=== PATIENT | male | born 1970 | race Hispanic/Latino ===

== ENCOUNTER 2025-08-03 13:14 | Emergency (ER) | payer BC ==
[~2025-08-03] VITALS: Ht 160 cm; Wt 65.9 kg
[2025-08-03] MEDS ORDERED: ACETAMINOPHEN 325 MG TAB ONE ×2 (14:33→14:41)
[2025-08-03] MEDS ORDERED: TRAMADOL HCL 50 MG TAB ONE (14:34)
[2025-08-03] MEDS: TRAMADOL HCL 50 MG TAB PO ONE (14:40)
[2025-08-03] MEDS: ACETAMINOPHEN 325 MG TAB PO ONE (14:40)
[2025-08-03] MEDS ORDERED: ULTRAM 50MG50 MG PO (16:25)
[2025-08-03 16:50] VITALS: PULSE 73; RESP 16; TEMP 98.1; O2SAT 95
== END 2025-08-03 16:53 | disposition home or self-care (01) ==
LOC: FSED 14:03
DX: M54.50 Low back pain, unspecified (principal); S32.018A Other fracture of first lumbar vertebra, initial encounter for closed fracture; S32.028A Other fracture of second lumbar vertebra, initial encounter for closed fracture; S32.038A Other fracture of third lumbar vertebra, initial encounter for closed fracture; S32.048A Other fracture of fourth lumbar vertebra, initial encounter for closed fracture; S22.41XA Multiple fractures of ribs, right side, initial encounter for closed fracture; W17.89XA Other fall from one level to another, initial encounter; Y92.89 Other specified places as the place of occurrence of the external cause; E11.9 Type 2 diabetes mellitus without complications; R91.1 Solitary pulmonary nodule; K80.20 Calculus of gallbladder without cholecystitis without obstruction; F17.210 Nicotine dependence, cigarettes, uncomplicated
CPT/HCPCS: 74176; 94799; 99283